=== PATIENT | male | born 1965 | race Caucasian/White ===

== ENCOUNTER → 2018-02-26 | Outpatient (CLI) | payer OTHER ==
--- NOTE | 2018-02-27 10:13 | KCIC ---
CHEST PA LATERAL History: Chronic cough, dyspnea on exertion and aspiration into airway. Comparison: None. Findings: Atherosclerotic aortic arch. The cardiomediastinal silhouette is normal. Pulmonary vasculature is normal. The lungs are clear. No pleural effusion or pneumothorax is seen. There is no acute bone abnormality. IMPRESSION: No acute cardiopulmonary process. Electronically signed by: Eriberto Craig MD (02/27/2018 10:10 AM) [id number]
== END | disposition home or self-care (01) ==
LOC: KCIC 09:59
PROVIDERS: ATTEND Nurse Practitioner Family
DX: I70.0 Atherosclerosis of aorta (principal)
CPT/HCPCS: 71046

== ENCOUNTER → 2018-05-01 | Outpatient (CLI) | payer OTHER ==
--- NOTE | 2018-05-01 13:58 | KCIC ---
Bilateral lower extremity arterial Doppler 04/23/2018 INDICATION: Peripheral vascular disease. COMPARISON: None available TECHNIQUE: Sonographic evaluation of bilateral lower extremity arterial system was performed utilizing grayscale and color Doppler. FINDINGS: Right lower extremity peak systolic velocity (centimeters per second): Common femoral artery: 143, triphasic Deep femoral artery: 93, triphasic Superficial femoral artery, proximal: 110, triphasic Superficial femoral artery, mid: 98, triphasic Superficial femoral artery, distal: 89, triphasic Popliteal: 94, triphasic Posterior tibialis artery: 94, triphasic Peroneal artery: 53, biphasic Anterior tibial artery: 42, biphasic Dorsalis pedis artery: 38, biphasic There is a 3.4 x 1.0 x 2.5 cm simple appearing popliteal cyst on the right. Left lower extremity peak systolic velocity (centimeters per second): Common femoral artery: 152, triphasic Deep femoral artery: 58, triphasic Superficial femoral artery, proximal: 108, triphasic Superficial femoral artery, mid: 94, triphasic Superficial femoral artery, distal: 93, triphasic Popliteal: 104, triphasic Posterior tibialis artery: 82, triphasic Peroneal artery: 54, triphasic Anterior tibial artery: 68, biphasic Dorsalis pedis artery: 25, biphasic IMPRESSION: No significant flow-limiting stenosis is identified at the bilateral lower extremity arterial system. Electronically signed by: Hollie Andersen MD (05/01/2018 1:14 PM) [id number]
== END | disposition home or self-care (01) ==
LOC: KCIC US 09:54
PROVIDERS: ATTEND Family Medicine
DX: I73.9 Peripheral vascular disease, unspecified (principal); M79.89 Other specified soft tissue disorders
CPT/HCPCS: 93925

== ENCOUNTER → 2018-05-13 | Outpatient (CLI) | payer OTHER ==
--- NOTE | 2018-05-13 16:15 | KCIC ---
EXAM: Left lower extremity venous Doppler sonogram. HISTORY: DVT. TECHNIQUE: Bass scale and color Doppler sonographic evaluation of the left lower extremity veins with spectral waveform analysis was performed. FINDINGS: There is normal color flow, normal compressibility and there are normal spectral waveforms in the common femoral, superficial femoral, popliteal, posterior tibial and greater saphenous veins. IMPRESSION: No Doppler evidence of lower extremity deep venous thrombosis. Electronically signed by: Salima Ayala MD (05/13/2018 4:11 PM) [place] [id number]
== END | disposition home or self-care (01) ==
LOC: KCIC US 15:05
PROVIDERS: ATTEND Family Medicine
DX: I82.422 Acute embolism and thrombosis of left iliac vein (principal)
CPT/HCPCS: 93971

== ENCOUNTER → 2018-08-21 | Outpatient (CLI) | payer OTHER ==
--- NOTE | 2018-08-23 11:42 | CARD ---
MR#: [id number] Date of Study: 08/21/2018 Ordering Physician: MSOHE TURK, Referring Physician: MOSHE TURK, Tech: Evelia Amin [facility] [place] APPROVED REPORT EXAM: Two-dimensional and M-mode echocardiogram with Doppler and color Doppler. Other Information Quality : Technically LimitedHR: 85bpm Rhythm : NSRTechnically limited study due to body habitus. INDICATION Shortness of breath 2D DIMENSIONS RVDd3.3 (2.9-3.5cm)Left Atrium(2D)3.9 (1.6-4.0cm) IVSd0.9 (0.7-1.1cm)Aortic Root(2D)3.0 (2.0-3.7cm) LVDd5.1 (3.9-5.9cm)LVOT Diameter2.3 (1.8-2.4cm) PWd0.9 (0.7-1.1cm)LVDs3.5 (2.5-4.0cm) FS (%) 32.3 %SV75.3 ml LVEF(%)60.2 (>50%) M-Mode DIMENSIONS Left Atrium(MM)3.88 (2.5-4.0cm)Aortic Root3.29 (2.2-3.7cm) Aortic Valve AoV Peak Jack.115.4cm/sAoV VTI21.0cm AO Peak GR.5.3mmHgLVOT Peak Jack.82.2cm/s AO Mean GR.3mmHgAVA (VMAX)3.01cm2 HUGO (VTI)3.00cm2 Mitral Valve MV E Hpestfkl97.1cm/sMV DECEL [id number] MV A Azjogpuc54.3cm/sE/A Ratio1.5 MV A [id number] Pulmonary Valve PV Peak Rbjzhoeg159.9cm/s LEFT VENTRICLE The left ventricle is normal size. There is normal left ventricular wall thickness. The left ventricu lar systolic function is normal and the ejection fraction is within normal range. The Ejection Fracti on is 55-60%. There is normal LV segmental wall motion. Transmitral Doppler flow pattern is Grade II- pseudonormal filling dynamics. RIGHT VENTRICLE The right ventricle is normal size. There is normal right ventricular wall thickness. The right ventr icular systolic function is normal. ATRIA The left atrium is borderline dilated. The right atrium size is normal. The interatrial septum is int act with no evidence for an atrial septal defect or patent foramen ovale as noted on 2-D or Doppler i maging. AORTIC VALVE The aortic valve is normal in structure and function. The aortic valve is trileaflet. Doppler and Col or Flow revealed no significant aortic regurgitation. There is no significant aortic valvular stenosi s. There is no aortic valvular vegetation. MITRAL VALVE The mitral valve is normal in structure and function. There is no evidence of mitral valve prolapse. There is no mitral valve stenosis. Doppler and Color Flow revealed no mitral valve regurgitation note d. TRICUSPID VALVE The tricuspid valve is normal in structure and function. Doppler and Color Flow revealed no tricuspid valve regurgitation noted. There is no tricuspid valve prolapse or vegetation. There is no tricuspid valve stenosis. PULMONIC VALVE The pulmonic valve is not well visualized. GREAT VESSELS The aortic root is normal in size. The ascending aorta is normal in size. The IVC is normal in size a nd collapses >50% with inspiration. PERICARDIAL EFFUSION There is no evidence of significant pericardial effusion. Critical Notification Critical Value: No <Conclusion> The left ventricular systolic function is normal and the ejection fraction is within normal range. Th e Ejection Fraction is 55-60%. There is normal LV segmental wall motion. No significant valvular disease. No significant pulmonary HTN Technically difficult study. Signed by : Ellis Gimenez, Electronically Approved : 08/23/2018 11:41:40
== END | disposition home or self-care (01) ==
LOC: ECHO 13:02
PROVIDERS: ATTEND Internal Medicine Pulmonary Disease
DX: R06.02 Shortness of breath (principal)
CPT/HCPCS: 93306